=== PATIENT | male | born 1980 | race African-American/Black ===

== ENCOUNTER 2017-12-08 15:15 | Inpatient (IN) | payer SELFPAY ==
[2017-12-08] MEDS ORDERED: NA CHLORIDE 0.9% 1,000 ML ONE (15:52)
[2017-12-08] MEDS ORDERED: ONDANSETRON 4 MG/2 ML VIAL IV PRN (16:13)
[2017-12-08] MEDS ORDERED: TRAMADOL HCL 50 MG TAB PO PRN (16:13)
[2017-12-08] MEDS ORDERED: ACETAMINOPHEN 500 MG TAB PO PRN (16:13)
[2017-12-08] MEDS ORDERED: HYDROCODONE/APAP 7.5/325 MG TAB PO PRN (16:13)
[2017-12-08 16:21] LABS: Absolute Lymphocytes (CBC) 1.2 K/uL (0.7-4.9); Absolute Monocytes 0.5 K/uL (0.1-1.3); Absolute Neutrophil 5.6 K/uL (1.8-8.0); Basophils % 0.3 % (0-1.3); Hematocrit 42.6 % (39.6-49.0); Lymphocytes % 15.8 % (15.3-44.8); MCH 27.3 pg (27.0-35.0); MCV 80.5 fL (80-100); Monocytes % 6.8 % (3.3-12.3); RBC Red Blood Cell Count 5.29 M/uL (4.33-5.43)
[2017-12-08 16:23] LABS: Protime INR 1.28
--- NOTE | 2017-12-08 16:29 | P.HP ---
Certification for Inpatient Patient admitted to: Inpatient With expected LOS: >2 Midnights Patient will require the following post-hospital care: Other (Set up of IV antibiotic therapy as an outpatient) Practitioner: I am a practitioner with admitting privileges, knowledge of patient current condition, hospital course, and medical plan of care. Services: Services provided to patient in accordance with Admission requirements found in Title 42 Section 412.3 of the Code of Federal Regulations Patient History Date of Service: 12/08/17 Primary Care Provider: Dr. Durham Reason for admission: Right 2nd toe swelling History of Present Illness: 37-year-old male presented emergency room with increasing swelling and pain to the right distal 2nd toe. The patient reports over the past week he has been having increasing swelling, pain to the right distal 2nd toe. This has caused him to have an abnormal gait. 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 He wears steel toe boots. Today he was seen by his PCP. His PCP was concerned that he had an infection in the bone. He was sent for x-rays and lab. X-ray results were reviewed by his PCP. He was told to go to the ER as x-rays were abnormal. Patient reported some chills over the past week. He denies any nausea, vomiting , headaches or dizziness. He denies any chest pain, shortness of breath, polyuria or polydipsia. Patient with history of hypertension and hyperlipidemia. In the ER patient evaluated. Increased swelling and exudate noted to the right 2nd toe. X-ray reveals osteomyelitis to the right 2nd distal toe. Patient admitted for IV antibiotic therapy and further evaluation. When I saw the patient ER, he did not appear in any distress He appeared comfortable. Patient denies any alcohol or tobacco use. Patient takes medication for hypertension and hyperlipidemia. No history of diabetes. Allergies No Known Allergies Allergy (Unverified 09/23/12 16:11) Home medications list reviewed: Yes Home Medications: Aspirin Chewable [Aspirin Chewable*] 162 mg PO DAILY #0 tab.chew 09/24/12 Famotidine [Pepcid*] 20 mg PO BID #0 tab 09/24/12 Metoprolol Tartrate [Lopressor*] 25 mg PO BID #60 tab 09/24/12 - Past Medical/Surgical History Diabetic: No -: Hypertension -: Hyperlipidemia -: GERD Past Surgical History: Patient denies surgical history Psychosocial/ Personal History: Patient is single. He has no children. 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 - Family History Family History: Reviewed- Non-Contributory - Social History Smoking Status: Never smoker Alcohol use: No CD- Drugs: No Caffeine use: Yes Place of Residence: Home Review of Systems General: Chills, As per HPI Eyes: Unremarkable ENT: Unremarkable Respiratory: Unremarkable Cardiovascular: Unremarkable Gastrointestinal: Unremarkable Genitourinary: Unremarkable Musculoskeletal: As per HPI Integumentary: As per HPI Neurological: Unremarkable Lymphatics: Unremarkable Physical Examination - Physical Exam General: Alert, In no apparent distress, Oriented x3, Cooperative HEENT: Atraumatic, Normocephalic, PERRLA, Mucous membr. moist/pink Neck: Supple, No Thyromegaly Respiratory: Clear to auscultation bilaterally, Normal air movement Cardiovascular: Normal pulses, Regular rate/rhythm Gastrointestinal: Normal bowel sounds, Soft and benign, Non-distended, No tenderness, No masses, No rebound, No guarding Musculoskeletal: No warmth, Tenderness (Pain to the right 2nd toe.) Integumentary: Tenderness/swelling (Increased swelling noted to the right 2nd toe compared to his other toes. A small ulcer noted to the proximal nail bed area. No significant warmth noted.) Neurological: Normal speech, Normal strength at 5/5 x4 extr, Normal tone, Normal affect Lymphatics: No axilla or inguinal lymphadenopathy Assessment and Plan - Plan Impression: Acute osteomyelitis of the right 2nd distal toe Hypertension Hyperlipidemia GERD Plan: Acute osteomyelitis of the right 2nd distal toe: Patient will be admitted for IV antibiotic therapy. IV vancomycin and Zosyn initiated. Pharmacy to monitor and adjust antibiotic therapy. Will obtain wound culture and blood culture results. Await lab-BMP/CBC/lactic acid. X-ray results identified osteomyelitis of the right 2nd distal toe. Will have surgery consulted to further evaluate. Patient will require IV antibiotic therapy long-term. Will have PICC line placed. Will discuss with surgery about the plan and duration of IV antibiotic therapy. field services director will need to help in this process of long-term IV antibiotic therapy either at home or as an outpatient with the hospital. Patient will be on DVT prophylaxis. Patient may require debridement but await recommendations from surgery. Likely discharge as early as Monday if IV antibiotic therapy can be arranged. Hypertension: Will continue with his medication metoprolol 12.5 mg 1 pill twice daily. Will monitor and adjust appropriately. Hyperlipidemia: Will continue with statin medication. GERD: Will continue with medication. Discharge Plan: Home Plan to discharge in: Greater than 2 days - Advance Directives Does patient have a Living Will: No Does patient have a Durable POA for Healthcare: No - Code Status/Comfort Care Code Status Assessed: Yes (Patient full code.) Time Spent Managing Pts Care (In Minutes): 55
[2017-12-08 16:51] LABS: ALT/SGPT 34 U/L (12-78); AST/SGOT 20 U/L (15-37); Albumin 3.8 g/dL (3.4-5.0); Alkaline Phosphatase 61 U/L (45-117); BUN Blood Urea Nitrogen 17 mg/dL (7-18); Bicarbonate 27 mmol/L (21-32); Bilirubin Direct < 0.1 mg/dL (0-0.2); Bilirubin Total 0.5 mg/dL (0.2-1.0); Creatine Phosphokinase 111 U/L (39-308); Glucose Level 133 mg/dL (74-106); Lipase 137 U/L (73-393); Potassium 4.1 mmol/L (3.5-5.1); Protein, Total 8.2 g/dL (6.4-8.2); Sodium Level 139 mmol/L (136-145)
[2017-12-08] MEDS ORDERED: VANCOMYCIN/NS 1 gm 1 GM/250 ML BAG IV SCH (17:00)
--- NOTE | 2017-12-08 17:02 | ER ---
Nurse's Notes [facility] Name: Wiliam Van Age: 37 yrs Sex: Male : 1980 Arrival Date: 12/08/2017 Time: 15:17 Bed 23 Private MD: Diagnosis: Osteomyelitis-Right Second Toe Presentation: 12/08 15:24 Presenting complaint: Patient states: he did xray for his right foot today and his PCP mg2 advised him to go to ED because of bone infection in the right middle toe. he was prescribed with clindamycin and bactrim today. denies fever. Transition of care: patient was not received from another setting of care. Onset of symptoms was November 2017. Risk Assessment: Do you want to hurt yourself or someone else? Patient reports no desire to harm self or others. Initial Sepsis Screen: Does the patient meet any 2 criteria? No. Patient's initial sepsis screen is negative. Does the patient have a suspected source of infection? Yes: Skin breakdown/wound. Care prior to arrival: None. 15:24 Method Of Arrival: Ambulatory mg2 15:24 Acuity: MANDO 3 mg2 Historical: - Allergies: 15:28 No Known Allergies; mg2 - Home Meds: 15:28 metoprolol tartrate Oral [Active]; provastatin [Active]; Clindamycin Oral [Active]; mg2 Bactrim DS Oral [Active]; - PMHx: 15:28 Hypertension; Hyperlipidemia; mg2 - PSHx: 15:28 None; mg2 - Immunization history:: Flu vaccine is not up to date. - Social history:: Smoking status: Patient/guardian denies using tobacco, Patient/guardian denies using alcohol, street drugs, IV drugs. - Ebola Screening: : No symptoms or risks identified at this time. Screenin:30 Abuse screen: Denies threats or abuse. Denies injuries from another. Nutritional mg2 screening: No deficits noted. Tuberculosis screening: No symptoms or risk factors identified. Fall Risk None identified. Assessment: 15:31 General: Appears in no apparent distress. comfortable, Behavior is calm, cooperative. mg2 Pain: Denies pain. Neuro: Level of Consciousness is awake, alert, obeys commands, Oriented to person, place, time, situation. Cardiovascular: Capillary refill < 3 seconds Patient's skin is warm and dry. Respiratory: Airway is patent Respiratory effort is even, unlabored, Respiratory pattern is regular, symmetrical. GI: No signs and/or symptoms were reported involving the gastrointestinal system. : No signs and/or symptoms were reported regarding the genitourinary system. EENT: No signs and/or symptoms were reported regarding the EENT system. Derm: Skin has lesions on right middle toe Skin is normal, Wound noted right middle toe. Musculoskeletal: Circulation, motion, and sensation intact. Capillary refill < 3 seconds, Swelling present in right foot. 16:48 Reassessment: Patient appears in no apparent distress at this time. Patient and/or mg2 family updated on plan of care and expected duration. Pain level reassessed. Patient is alert, oriented x 3, equal unlabored respirations, skin warm/dry/pink. seen by hospitalist sales representative publications and advised for admission. patient agreed about the plan. Vital Signs: 15:29 BP 154 / 86; Pulse 108; Resp 18; Temp 99.2; Pulse Ox 100% on R/A; Weight 74.39 kg; mg2 Height 5 ft. 5 in. (165.10 cm); Pain 0/10; 16:48 BP 142 / 51; Pulse 110; Resp 18; Pulse Ox 100% on R/A; mg2 17:20 BP 144 / 60; Pulse 102; Resp 18; Temp 98.8(O); Pulse Ox 100% on R/A; mg2 15:29 Body Mass Index 27.29 (74.39 kg, 165.10 cm) mg2 ED Course: 15:17 Patient arrived in ED. tw3 15:18 Brett Light PA is PHCP. cp 15:18 Ricardo Delgadillo MD is Attending Physician. cp 15:24 Jeffrey Ruiz, BELIA is Primary Nurse. mg2 15:26 Triage completed. mg2 15:30 Arm band placed on. mg2 15:33 Patient has correct armband on for positive identification. Bed in low position. Call mg2 light in reach. Side rails up X 1. Pulse ox on. NIBP on. Door closed. Warm blanket given. 15:59 No provider procedures requiring assistance completed. Inserted saline lock: 20 gauge mg2 in right antecubital area, using aseptic technique. Blood collected. 16:25 EKG done, by optical technician. reviewed by Brett BARTON. sm3 17:00 Prezas, Mike, DO is Hospitalizing Provider. cp 17:39 Patient admitted, IV remains in place. mg2 Administered Medications: 15:59 Drug: NS 0.9% 1000 ml Route: IV; Rate: 1 bolus; Site: right antecubital; mg2 17:37 Follow up: Response: No adverse reaction; IV Status: Completed infusion mg2 17:05 Drug: Zosyn 3.375 grams Route: IVPB; Infused Over: 60 mins; Site: right antecubital; mg2 17:05 Follow up: Response: No adverse reaction; IV Status: Infusion continued upon admission mg2 17:37 Not Given (medicine sent together with the patient in the floor. nurse aware. ): mg2 vancoMYCIN 1 grams IVPB once over 2 hrs Point of Care Testing: Blood Glucose: 16:09 Blood Glucose: 116 mg/dL; mg2 Ranges: Outcome: 17:01 Decision to Hospitalize by Provider. cp 17:39 Admitted to Tele accompanied by tech, via wheelchair, room 411, with chart, Report mg2 called to BELIA Quinones 17:39 Condition: stable 17:39 Instructed on the need for admit, Demonstrated understanding of instructions. 17:40 Patient left the ED. mg2 Signatures: Brett Light PA PA dayana Mancilla, Lakeisha tw3 Jeffrey Ruiz RN RN mg2 Latosha Zhang sm3
--- NOTE | 2017-12-08 17:02 | EDPHYS ---
Physician Documentation [facility] Name: Wiliam Van Age: 37 yrs Sex: Male : 1980 Arrival Date: 12/08/2017 Time: 15:17 Bed 23 Private MD: ED Physician Ricardo Delgadillo HPI: 12/08 15:45 This 37 yrs old Black Male presents to ER via Ambulatory with complaints of BONE cp INFECTION. 15:45 The patient presents with osteomyelitis of right second toe. cp 15:45 Patient reports he was called by DR Durham today after having xrays taken of right foot cp that showed osteomyelitis of distal phalanx of right second toe. Patient reports noticing open wound 1 week ago. Took 1 dose of prescribed clindamycin prior to arrival. Historical: - Allergies: 15:28 No Known Allergies; mg2 - Home Meds: 15:28 metoprolol tartrate Oral [Active]; provastatin [Active]; Clindamycin Oral [Active]; mg2 Bactrim DS Oral [Active]; - PMHx: 15:28 Hypertension; Hyperlipidemia; mg2 - PSHx: 15:28 None; mg2 - Immunization history:: Flu vaccine is not up to date. - Social history:: Smoking status: Patient/guardian denies using tobacco, Patient/guardian denies using alcohol, street drugs, IV drugs. - Ebola Screening: : No symptoms or risks identified at this time. ROS: 15:50 Constitutional: Negative for body aches, chills, fever, poor PO intake. cp 15:50 Eyes: Negative for injury, pain, redness, and discharge. cp 15:50 ENT: Negative for drainage from ear(s), ear pain, sore throat, difficulty swallowing, difficulty handling secretions. 15:50 Cardiovascular: Negative for chest pain, edema, palpitations. 15:50 Respiratory: Negative for cough, shortness of breath, wheezing. 15:50 Skin: Positive for cellulitis, open wound distal tip right second toe. 15:50 Neuro: Negative for altered mental status, headache, syncope, weakness. 15:50 All other systems are negative. Exam: 16:00 Constitutional: The patient appears in no acute distress, alert, awake, cp non-diaphoretic, non-toxic, well developed, well nourished. 16:00 Head/Face: Normocephalic, atraumatic. Eyes: Pupils equal round and reactive to light, cp extra-ocular motions intact. Lids and lashes normal. Conjunctiva and sclera are non-icteric and not injected. Cornea within normal limits. Periorbital areas with no swelling, redness, or edema. ENT: Nares patent. No nasal discharge, no septal abnormalities noted. Tympanic membranes are normal and external auditory canals are clear. Oropharynx with no redness, swelling, or masses, exudates, or evidence of obstruction, uvula midline. Mucous membranes moist. Neck: Trachea midline, no thyromegaly or masses palpated, and no cervical lymphadenopathy. Supple, full range of motion without nuchal rigidity, or vertebral point tenderness. No Meningismus. Chest/axilla: Normal chest wall appearance and motion. Nontender with no deformity. No lesions are appreciated. 16:00 Cardiovascular: Rate: tachycardic, Rhythm: regular, Pulses: Pulses are 2+ in right radial artery, right dorsalis pedis artery, left radial artery and left dorsalis pedis artery. Heart sounds: murmur, not appreciated, rub, not appreciated, gallop, not appreciated, Edema: is not appreciated, JVD: is not appreciated. 16:00 Respiratory: the patient does not display signs of respiratory distress, Respirations: normal, no use of accessory muscles, no retractions, no splinting, no tachypnea, labored breathing, is not present, Breath sounds: are clear throughout, no decreased breath sounds, no stridor, no wheezing. 16:00 Abdomen/GI: Inspection: abdomen appears normal, Bowel sounds: active, all quadrants, Palpation: abdomen is soft and non-tender, in all quadrants, rebound tenderness, is not appreciated, voluntary guarding, is not appreciated, involuntary guarding, is not appreciated. 16:00 Skin: open wound distal phalanx right second toe with swelling of digit, erythema, mild drainage. 16:00 Neuro: Orientation: to person, place \T\ time. Mentation: lucid, able to follow commands, Cerebellar function: is grossly normal, Motor: moves all fours, strength is normal, Sensation: no obvious gross deficits. 16:25 ECG was reviewed by the Attending Physician. cp Vital Signs: 15:29 BP 154 / 86; Pulse 108; Resp 18; Temp 99.2; Pulse Ox 100% on R/A; Weight 74.39 kg; mg2 Height 5 ft. 5 in. (165.10 cm); Pain 0/10; 16:48 BP 142 / 51; Pulse 110; Resp 18; Pulse Ox 100% on R/A; mg2 17:20 BP 144 / 60; Pulse 102; Resp 18; Temp 98.8(O); Pulse Ox 100% on R/A; mg2 15:29 Body Mass Index 27.29 (74.39 kg, 165.10 cm) mg2 MDM: 15:18 Patient medically screened. cp 17:00 Data reviewed: vital signs, nurses notes, lab test result(s), EKG, radiologic studies, cp plain films, radiology report. 17:00 Test interpretation: by ED physician or midlevel provider: ECG. Counseling: I had a cp detailed discussion with the patient and/or guardian regarding: the historical points, exam findings, and any diagnostic results supporting the discharge/admit diagnosis, lab results, radiology results, the need for further work-up and treatment in the hospital. 12/08 15:44 Order name: Wound Culture cp 12/08 15:44 Order name: C-Reactive Protein; Complete Time: 16:53 cp 12/08 16:54 Interpretation: Abnormal: C-REACTIVE PROT 15.60. cp 12/08 15:44 Order name: Sed Rate cp 12/08 15:44 Order name: Basic Metabolic Panel; Complete Time: 16:53 cp 12/08 16:53 Interpretation: Normal except: GLUC 133; GFR 82. cp 12/08 15:44 Order name: Blood Culture Adult (2) cp 12/08 15:44 Order name: CBC with Diff cp 12/08 16:34 Interpretation: Normal except: ZAHRA% 76.1. cp 12/08 15:44 Order name: CPK; Complete Time: 16:53 cp 12/08 15:44 Order name: LFT's; Complete Time: 16:53 cp 12/08 15:44 Order name: Lipase; Complete Time: 16:53 cp 12/08 15:44 Order name: Procalcitonin; Complete Time: 16:53 cp 12/08 15:44 Order name: Protime (+inr); Complete Time: 16:33 cp 12/08 16:34 Interpretation: Normal except: PT 15.2. cp 12/08 15:44 Order name: Ptt, Activated; Complete Time: 16:33 cp 12/08 16:34 Interpretation: Reviewed. cp 12/08 16:08 Order name: Lactate mg2 12/08 16:21 Order name: Basic Metabolic Panel EDMS 12/08 16:21 Order name: Basic Metabolic Panel EDMS 12/08 16:21 Order name: Basic Metabolic Panel EDMS 12/08 16:21 Order name: Basic Metabolic Panel EDMS 12/08 16:21 Order name: CBC with Automated Diff EDMS 12/08 16:21 Order name: CBC with Automated Diff EDMS 12/08 16:21 Order name: CBC with Automated Diff EDMS 12/08 16:21 Order name: CBC with Automated Diff EDMS 12/08 16:21 Order name: Lipid Profile EDMS 12/08 16:21 Order name: Lipid Profile EDMS 12/08 16:21 Order name: Magnesium EDMS 12/08 16:21 Order name: Magnesium EDMS 12/08 16:21 Order name: Magnesium EDMS 12/08 16:21 Order name: Magnesium EDMS 12/08 16:21 Order name: Thyroid Stimulating Hormone EDMS 12/08 16:21 Order name: Thyroid Stimulating Hormone EDMS 12/08 16:21 Order name: Wound Culture EDMS 12/08 15:44 Order name: Accucheck; Complete Time: 15:59 cp 12/08 15:44 Order name: Cardiac monitoring; Complete Time: 15:59 cp 12/08 15:44 Order name: EKG - Nurse/Tech; Complete Time: 16:50 cp 12/08 15:44 Order name: IV Saline Lock - Large Bore; Complete Time: 15:59 cp 12/08 15:44 Order name: Labs collected and sent; Complete Time: 15:59 cp 12/08 15:44 Order name: O2 Per Protocol; Complete Time: 15:59 cp 12/08 15:44 Order name: O2 Sat Monitoring; Complete Time: 15:59 cp 12/08 16:21 Order name: CONS Pharmacy Consult EDMS 12/08 16:21 Order name: CONS Physician Consult EDMS 12/08 16:21 Order name: Social Service Consult EDMS 12/08 16:21 Order name: Heart Healthy EDMS 12/08 16:21 Order name: Blood Culture EDMS EC:25 Rate is 109 beats/min. Rhythm is regular. NH interval is normal. QRS interval is cp normal. QT interval is normal. T waves are Inverted in lead III. Interpreted by me. Reviewed by me. Administered Medications: 15:59 Drug: NS 0.9% 1000 ml Route: IV; Rate: 1 bolus; Site: right antecubital; mg2 17:37 Follow up: Response: No adverse reaction; IV Status: Completed infusion mg2 17:05 Drug: Zosyn 3.375 grams Route: IVPB; Infused Over: 60 mins; Site: right antecubital; mg2 17:05 Follow up: Response: No adverse reaction; IV Status: Infusion continued upon admission mg2 17:37 Not Given (medicine sent together with the patient in the floor. nurse aware. ): mg2 vancoMYCIN 1 grams IVPB once over 2 hrs Point of Care Testing: Blood Glucose: 16:09 Blood Glucose: 116 mg/dL; mg2 Ranges: Critical Glucose Levels:Adult <50 mg/dl or >400 mg/dl <40 mg/dl or >180 mg/dl Disposition: 12/09 06:24 Co-signature as Attending Physician, Ricardo Delgadillo MD I agree with the assessment and kdr plan of care. Disposition: 12/08/17 17:01 Hospitalization ordered by Mike Salomon for Inpatient Admission. Preliminary diagnosis is Osteomyelitis - Right Second Toe. - Bed requested for Telemetry/MedSurg (Inpatient). - Status is Inpatient Admission. mg2 - Condition is Fair. - Problem is new. - Symptoms are unchanged. UTI on Admission? No Signatures: Dispatcher [employer] EDMS Ricardo Delgadillo MD MD [facility] Brett Light PA PA cp Botello, Elizabeth eb Gardose, Michele, RN RN mg2 Corrections: (The following items were deleted from the chart) 12/08 17:02 17:01 Hospitalization Ordered by Mike Salomon DO for Inpatient Admission. Preliminary eb diagnosis is Osteomyelitis - Right Second Toe. Bed requested for Telemetry/MedSurg (Inpatient). Status is Inpatient Admission. Condition is Fair. Problem is new. Symptoms are unchanged. UTI on Admission? No. cp 17:40 17:02 12/08/2017 17:01 Hospitalization Ordered by Mike Salomon DO for Inpatient mg2 Admission. Preliminary diagnosis is Osteomyelitis - Right Second Toe. Bed requested for Telemetry/MedSurg (Inpatient). Status is Inpatient Admission. Condition is Fair. Problem is new. Symptoms are unchanged. UTI on Admission? No. eb
[2017-12-08] MEDS ORDERED: PIPER/TAZO/NS 3.375gm 3.375 GM/100 ML BAG ONE (17:09)
[2017-12-08] MEDS: NA CHLORIDE 0.9% 1,000 ML IV SCH (18:15)
[2017-12-08] MEDS: METOPROLOL TAR 25 MG TAB PO SCH (18:24)
[2017-12-08] MEDS: ENOXAPARIN 40 MG/0.4 ML SQ SCH (18:25)
[2017-12-08 19:50] VITALS: BMI 27.3
[2017-12-08] MEDS ORDERED: INFLUENZA VACCINE (for 3y+) 0.5 ML DOSE IMVAC ONE (20:00)
[2017-12-08] MEDS: PIPER/TAZO/NS 3.375gm 3.375 GM/100 ML BAG IVPB SCH (21:00)
[2017-12-08] MEDS: FAMOTIDINE 20 MG TAB PO SCH (21:00)
[2017-12-08] MEDS: ATORVASTATIN 10 MG TAB PO SCH (21:01)
[2017-12-08 21:49] LABS: Urine Appearance CLEAR; Urine Bilirubin NEGATIVE (NEG); Urine Blood NEGATIVE (NEG); Urine Color YELLOW; Urine Glucose NEGATIVE (NEG); Urine Protein NEGATIVE (NEG); Urine Specific Gravity >=1.030 (1.005-1.030)
[2017-12-08 21:50] LABS: Urine Microscopic Reflex NO UMIC
[2017-12-09] MEDS: PIPER/TAZO/NS 3.375gm 3.375 GM/100 ML BAG IVPB SCH ×3 (01:44→16:22)
[2017-12-09] MEDS: NA CHLORIDE 0.9% 1,000 ML IV SCH ×2 (01:45→16:24)
--- NOTE | 2017-12-09 04:17 | EKG ---
Test Date: 2017-12-08 Test Time: 16:16:21 Cripple Cutter: CHERYL MEASUREMENT RESULTS: Intervals: Rate: 109 DC: 126 QRSD: 90 QT: 322 QTc: 433 [employer]: P: 46 DC: 126 QRS: 93 T: 2 INTERPRETIVE STATEMENTS: Sinus tachycardia Rightward axis Minimal voltage criteria for LVH, may be normal variant T wave abnormality, consider inferior ischemia Abnormal ECG Compared to ECG 09/23/2012 11:27:56 Right-axis deviation now present T-wave abnormality still present Possible ischemia still present Electronically Signed On 12-09-17 04:17:08 CDT by Jesse Jones
[2017-12-09] MEDS: METOPROLOL TAR 25 MG TAB PO SCH ×2 (05:00→18:28)
[2017-12-09 06:05] LABS: Absolute Monocytes 0.7 K/uL (0.1-1.3); Absolute Neutrophil 4.2 K/uL (1.8-8.0); Basophils % 0.4 % (0-1.3); Hematocrit 38.4 % (39.6-49.0); Lymphocytes % 16.4 % (15.3-44.8); MCH 26.9 pg (27.0-35.0); MCV 80.9 fL (80-100); MPV 7.5 fL (7.6-11.3); Monocytes % 11.1 % (3.3-12.3); RBC Red Blood Cell Count 4.74 M/uL (4.33-5.43)
[2017-12-09 06:22] LABS: Magnesium 1.9 mg/dL (1.8-2.4); Potassium 4.1 mmol/L (3.5-5.1); Thyroid Stimulating Hormone 0.79 uIU/mL (0.360-3.740)
[2017-12-09] MEDS: ASPIRIN EC 81 MG TAB PO SCH (09:01)
[2017-12-09] MEDS: ENOXAPARIN 40 MG/0.4 ML SQ SCH (09:01)
[2017-12-09] MEDS: FAMOTIDINE 20 MG TAB PO SCH ×2 (09:01→20:25)
[2017-12-09] MEDS: VANCOMYCIN 1.25 GM in NA CHLORIDE 0.9% 250 ML IVPB SCH (09:43)
--- NOTE | 2017-12-09 10:27 | P.PN ---
Subjective Date of Service: 12/09/17 Primary Care Provider: Dr. Durham Chief Complaint: Right 2nd toe swelling Subjective: Doing well Physical Examination - Vital Signs Temperature: 98.2 F Blood Pressure: 144/93 Pulse: 91 Respirations: 20 Pulse Ox (%): 100 - Physical Exam General: Alert, In no apparent distress, Oriented x3, Cooperative HEENT: Atraumatic Neck: Supple Respiratory: Clear to auscultation bilaterally, Normal air movement Cardiovascular: Normal pulses, Regular rate/rhythm Gastrointestinal: Normal bowel sounds, Soft and benign, Non-distended, No masses , No rebound, No guarding Musculoskeletal: No warmth Integumentary: Other (Swelling to the right 2nd toe improved) Neurological: Normal speech, Normal strength at 5/5 x4 extr, Normal tone, Normal affect - Studies Laboratory Data (last 24 hrs) 12/08/17 15:55: PT 15.2 H, INR 1.28, APTT 38.1 H 12/08/17 15:55: WBC 7.3, Hgb 14.5, Hct 42.6, Plt Count 379 12/08/17 15:55: Sodium 139, Potassium 4.1, BUN 17, Creatinine 1.20, Glucose 133 H, Total Bilirubin 0.5, AST 20, ALT 34, Alkaline Phosphatase 61, Lipase 137 Medications List Reviewed: Yes Assessment & Plan Discharge Plan: Home Plan to discharge in: 48 Hours Physician Review Additional Text: Impression: Acute osteomyelitis of the right 2nd distal toe Hypertension Hyperlipidemia GERD Plan: Acute osteomyelitis of the right 2nd distal toe: Patient admitted for IV antibiotic therapy. Will continue with IV vancomycin and Zosyn initiated. Pharmacy to monitor and adjust antibiotic therapy. Wound culture and blood culture results. X-ray results identified osteomyelitis of the right 2nd distal toe. Case discussed with surgery. Patient will have debridement at bedside. Patient requires PICC line. Surgery recommends vancomycin at discharge IV for 6 weeks. Will need to discuss with foster care social worker on Monday to help arrange. Patient has no insurance. Will check with pharmacy to see what dosage he will require. Patient can be [facility] up at [facility] as an outpatient. This will need help in arranging outpatient IV antibiotic therapy and follow up. Hypertension: Will increase metoprolol to 25 mg 1 pill twice daily for better control. Will monitor and adjust appropriately. Hyperlipidemia: Will continue with statin medication. GERD: Will continue with medication. Time Spent Managing Pts Care (In Minutes): 55
--- NOTE | 2017-12-09 13:07 | CON ---
Date of Consultation: 12/08/2017 Reason: Osteomyelitis, infected wound, right second toe. History Of Present Illness: The patient is a 37-year-old gentleman, came to the emergency room refer red by his primary care physician with a right second toe infection. He had x-ray done which showed osteomyelitis prior to his visit to the ER. He denies any fever or chills. He states this has been bothering him for the last week or so. He works and wears steel-toed boots. He had some chills, but no fevers. No sore throat, runny nose, cough, headaches, or dizziness. No chest pain. Minimal yi inage from a small open wound in the dorsum of the right second toe. Review of Systems: Otherwise unremarkable. Past Medical History: He denies diabetes. He does have hypertension and hyperlipidemia. Past Surgical History: Negative. Allergies: NO ALLERGIES. Social History: He does not smoke. Does not drink alcohol. Family History: Noncontributory. Physical Examination: Vital Signs: Stable. He is afebrile he is awake, alert, or oriented x3. Head and Neck: Cranial nerves 2 through 12 grossly within normal limits. No neck masses. No JVD. Throat clear. Neck supple. Chest: Clear. Heart: S1 and S2. Abdomen: Soft. Extremities: Palpable dorsalis pedis and posterior tibial pulses, and right second toe the distal ph alanx is enlarged, swollen. There is an open wound at the nail bed. Upon examining it, there was pu s that was oozing out from near the nail bed, at the bedside. The necrotic skin on the toe was debri ded. There was more pus that was there. Cultures were done. There was opening toward the distal ph alanx, the bony part of the toe and there was some fibrinous exudates there. The remainder of the pr oximal toe and the foot appears without significant evidence of disease. X-rays from yesterday showe d second toe distal phalanx osteomyelitis. Laboratory Data: Shows a sedimentation rate of 20. White count is normal. There was slight left sh ift. INR is 1.28. Chemistry reviewed. Procalcitonin was normal. Lactic acid was normal. Assessment: A 37-year-old gentleman with infected wounds right second toe with osteomyelitis. Recommendation: All options were discussed with the patient including amputation of the distal toe; however, as he is a young patient, he is not a diabetic, I think it warrants just trying 6 weeks of I V antibiotics, local wound care. Hopefully we can salvage this toe. Should the medical management n ot work then patient will require amputation of that toe and also we should await the results of the cultures prior to deciding which antibiotics he needs as an outpatient. MCKAY/CIERA Voice ID: [id number] Report ID: [id number]
[2017-12-09] MEDS: ATORVASTATIN 10 MG TAB PO SCH (20:25)
[2017-12-10] MEDS: PIPER/TAZO/NS 3.375gm 3.375 GM/100 ML BAG IVPB SCH ×3 (00:23→16:16)
[2017-12-10] MEDS: NA CHLORIDE 0.9% 1,000 ML IV SCH (00:24)
[2017-12-10] MEDS: VANCOMYCIN 1.25 GM in NA CHLORIDE 0.9% 250 ML IVPB SCH ×2 (04:00→21:09)
[2017-12-10] MEDS: METOPROLOL TAR 25 MG TAB PO SCH ×2 (05:04→17:10)
[2017-12-10 07:31] LABS: Absolute Monocytes 0.6 K/uL (0.1-1.3); Absolute Neutrophil 4.7 K/uL (1.8-8.0); Basophils % 0.4 % (0-1.3); Eosinophils % 1.8 % (0-4.4); Hematocrit 42.1 % (39.6-49.0); Lymphocytes % 15.3 % (15.3-44.8); MCH 26.9 pg (27.0-35.0); MCV 80.6 fL (80-100); MPV 7.4 fL (7.6-11.3); RBC Red Blood Cell Count 5.23 M/uL (4.33-5.43)
[2017-12-10 07:43] LABS: Magnesium 2.2 mg/dL (1.8-2.4); Potassium 3.7 mmol/L (3.5-5.1)
--- NOTE | 2017-12-10 08:26 | P.PN ---
Subjective Date of Service: 12/10/17 Primary Care Provider: Dr. Durham Chief Complaint: Right 2nd toe swelling Subjective: Doing well Physical Examination - Vital Signs Temperature: 98.5 F Blood Pressure: 142/86 Pulse: 73 Respirations: 20 Pulse Ox (%): 98 - Physical Exam General: Alert, In no apparent distress, Oriented x3, Cooperative HEENT: Atraumatic Neck: Supple Respiratory: Clear to auscultation bilaterally, Normal air movement Cardiovascular: Normal pulses, Regular rate/rhythm Gastrointestinal: Normal bowel sounds, Soft and benign, Non-distended, No tenderness, No masses, No rebound, No guarding Integumentary: Other (Right foot bandaged.) Neurological: Normal speech, Normal strength at 5/5 x4 extr, Normal tone, Normal affect - Studies Microbiology Data (last 24 hrs): 12/08/17 15:55 Wound - Right Toe Gram Stain - Final Medications List Reviewed: Yes Assessment & Plan Discharge Plan: Home Plan to discharge in: 24 Hours Physician Review Additional Text: Impression: Acute osteomyelitis of the right 2nd distal toe, wound culture positive for Staph aureus Hypertension Hyperlipidemia GERD Plan: Acute osteomyelitis of the right 2nd distal toe, wound culture positive for Staph aureus: Will continue with IV antibiotic therapy. Patient currently on vancomycin and Zosyn. Wound culture positive for Staph aureus. Case discussed with surgery yesterday. Patient had bedside debridement. Surgery recommends to continue with IV antibiotic therapy for 6 weeks. Recommendation is to continue with vancomycin only. Will discuss with psych social worker along with pharmacy to help arrange for outpatient IV antibiotic therapy. Patient still requires PICC line. Patient will need follow up at [facility]. If no significant improvement over the next several weeks patient may require amputation. Possible discharge as early as tomorrow if arrangements for IV antibiotic therapy and wound care can be arranged. Hypertension: Medication was increased yesterday. Blood pressure better controlled. Will continue to monitor and adjust appropriately. Hyperlipidemia: Will continue with statin medication. GERD: Will continue with medication. Time Spent Managing Pts Care (In Minutes): 55
[2017-12-10] MEDS: ENOXAPARIN 40 MG/0.4 ML SQ SCH (08:27)
[2017-12-10] MEDS: FAMOTIDINE 20 MG TAB PO SCH ×2 (08:28→21:09)
[2017-12-10] MEDS: ASPIRIN EC 81 MG TAB PO SCH (08:28)
--- NOTE | 2017-12-10 13:45 | PN ---
Date of Progress Note: 12/10/2017 Subjective: The patient is awake, alert, feels better. Objective: Vital Signs: Stable, afebrile. Extremities: Dressing is clean, dry, and intact. Laboratory Data: Cultures reviewed and the patient HAS Staph aureus, sensitive to vancomycin. Assessment: Right second toe osteomyelitis with infected wound. Recommendation: Continue dressing as ordered, antibiotics. The patient can be discharged once [facility] and PICC line is placed for 6 weeks of IV antibiotics. We will follow the patient [facility]. /MODL Voice ID: [id number] Report ID: [id number]
[2017-12-10] MEDS: ATORVASTATIN 10 MG TAB PO SCH (21:10)
[2017-12-11] MEDS: PIPER/TAZO/NS 3.375gm 3.375 GM/100 ML BAG IVPB SCH ×3 (01:05→17:00)
[2017-12-11 05:35] LABS: Absolute Lymphocytes (CBC) 1.4 K/uL (0.7-4.9); Absolute Monocytes 0.8 K/uL (0.1-1.3); Absolute Neutrophil 4.2 K/uL (1.8-8.0); Basophils % 0.4 % (0-1.3); Eosinophils % 1.8 % (0-4.4); Hematocrit 39.6 % (39.6-49.0); Lymphocytes % 21.2 % (15.3-44.8); MCH 27.2 pg (27.0-35.0); MCV 80.9 fL (80-100); MPV 7.2 fL (7.6-11.3); Monocytes % 12.3 % (3.3-12.3)
[2017-12-11 05:57] LABS: Magnesium 2.1 mg/dL (1.8-2.4); Potassium 3.8 mmol/L (3.5-5.1)
[2017-12-11] MEDS: METOPROLOL TAR 25 MG TAB PO SCH ×2 (06:52→18:33)
[2017-12-11] MEDS: ENOXAPARIN 40 MG/0.4 ML SQ SCH (08:17)
[2017-12-11] MEDS: ASPIRIN EC 81 MG TAB PO SCH (08:17)
[2017-12-11] MEDS: FAMOTIDINE 20 MG TAB PO SCH (08:17)
[2017-12-11 10:03] VITALS: O2SAT 98
[2017-12-11] MEDS ORDERED: VANCOMYCIN 2.25 GM in NA CHLORIDE 0.9% 500 ML IVPB SCH (13:30)
--- NOTE | 2017-12-11 13:42 | P.DS ---
Admission Date: 12/08/17 Discharge Date: 12/11/17 Primary Care Provider: Dr. Durham Disposition: ROUTINE DISCHARGE Discharge Condition: GOOD Reason for Admission: Right 2nd toe swelling Consultations: Surgery-Dr. Rosenthal Procedures: X-ray: CLINICAL HISTORY: Soft tissue infection distal second toe COMPARISON: None. FINDINGS: Erosive changes are seen in the cortex of the tuft second distal phalanx. Bone loss changes evident on the lateral projection. Bone loss changes limited to the tip of the distal phalanx. The base and DIP joint are unremarkable. Remainder of the second toe unremarkable. Elsewhere the toes and metatarsals are without acute or significant finding. No midfoot abnormality. Soft tissue swelling is present at the distal second toe with no air or foreign body. IMPRESSION: Osteomyelitis is present second distal phalanx. No air or foreign body in the second toe. Medical problem list: Acute osteomyelitis of the right 2nd distal toe, wound culture positive for Staph aureus Hypertension Hyperlipidemia GERD Brief History of Present Illness: 37-year-old male presented emergency room with increasing swelling and pain to the right distal 2nd toe. The patient reports over the past week he has been having increasing swelling, pain to the right distal 2nd toe. This has caused him to have an abnormal gait. 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 He wears steel toe boots. Today he was seen by his PCP. His PCP was concerned that he had an infection in the bone. He was sent for x-rays and lab. X-ray results were reviewed by his PCP. He was told to go to the ER as x-rays were abnormal. Patient reported some chills over the past week. He denies any nausea, vomiting , headaches or dizziness. He denies any chest pain, shortness of breath, polyuria or polydipsia. Patient with history of hypertension and hyperlipidemia. In the ER patient evaluated. Increased swelling and exudate noted to the right 2nd toe. X-ray reveals osteomyelitis to the right 2nd distal toe. Patient admitted for IV antibiotic therapy and further evaluation. When I saw the patient ER, he did not appear in any distress He appeared comfortable. Patient denies any alcohol or tobacco use. Patient takes medication for hypertension and hyperlipidemia. No history of diabetes. Hospital Course: Patient admitted for swelling, pain and exudate to the right distal 2nd toe. Patient was seen by his PCP and sent to the ER due to osteomyelitis. Patient found to have osteomyelitis as per x-ray. Patient was admitted for IV antibiotic treatment. Patient was evaluated by surgery. Bedside debridement was done. Surgery recommends to continue with IV antibiotic therapy for 6 weeks. Wound culture positive for Staph aureus. PICC line was placed for long- term IV antibiotic therapy. Arrangements for outpatient IV antibiotic therapy of vancomycin for 6 weeks has also been arranged. Patient will follow up with marketing regional consultant-Dr. Alejandra to continue to monitor and adjust IV vancomycin for the next 6 weeks. Patient may follow up with Dr. Alejandra at the [facility] to monitor his care. Recommendation is for the patient follow up with surgery in 2 -4 weeks to monitor his progress as well. If no improvement patient may require amputation. Patient will be given surgical boot to protect his toe at discharge. He will be taught wound care prior to discharge. At discharge he will continue with vancomycin 2.[address] Alejandra will monitor Vancomycin levels and adjust antibiotic therapy. He is to come to the hospital to get his IV antibiotic therapy. This has been arranged by social media editor and the hospital. A limited supply of tramadol 50 mg 1 pill 3 times a day as needed for pain will be provided. Patient has hypertension. Medications adjusted during his stay for better control. At discharge he will continue with metoprolol 25 mg 1 pill twice daily. Recommendation is to maintain blood pressures less than 150/80. Further adjustment can be done by his PCP. Patient has hyperlipidemia. Patient will continue with Pravastatin 20 mg 1 pill daily. Vital Signs/Physical Exam: Temp Pulse Resp BP Pulse Ox 98.1 F 83 16 140/82 100 12/11/17 12:00 12/11/17 12:00 12/11/17 12:00 12/11/17 12:00 12/11/17 12:00 General: Alert, In no apparent distress, Oriented x3, Cooperative HEENT: Atraumatic, Normocephalic, Mucous membr. moist/pink Neck: Supple Respiratory: Clear to auscultation bilaterally, Normal air movement Cardiovascular: Normal pulses, Regular rate/rhythm Gastrointestinal: Normal bowel sounds, Soft and benign, Non-distended, No tenderness, No masses, No rebound, No guarding Musculoskeletal: No erythema, No tenderness, No warmth Integumentary: No cyanosis, Other (Right foot bandaged) Neurological: Normal speech, Normal strength at 5/5 x4 extr, Normal tone, Normal affect Laboratory Data at Discharge: WBC 6.5 K/uL (4.3-10.9) 12/11/17 05:24 Hgb 13.3 g/dL (13.6-17.9) L 12/11/17 05:24 Hct 39.6 % (39.6-49.0) 12/11/17 05:24 Plt Count 323 K/uL (152-406) 12/11/17 05:24 PT 15.2 SECONDS (9.5-12.5) H 12/08/17 15:55 INR 1.28 12/08/17 15:55 APTT 38.1 SECONDS (24.3-36.9) H 12/08/17 15:55 Sodium 142 mmol/L (136-145) 12/11/17 05:24 Potassium 3.8 mmol/L (3.5-5.1) 12/11/17 05:24 BUN 10 mg/dL (7-18) 12/11/17 05:24 Creatinine 1.20 mg/dL (0.55-1.3) 12/11/17 05:24 Glucose 86 mg/dL (74-106) 12/11/17 05:24 Magnesium 2.1 mg/dL (1.8-2.4) 12/11/17 05:24 Total Bilirubin 0.5 mg/dL (0.2-1.0) 12/08/17 15:55 AST 20 U/L (15-37) 12/08/17 15:55 ALT 34 U/L (12-78) 12/08/17 15:55 Alkaline Phosphatase 61 U/L (45-117) 12/08/17 15:55 Triglycerides 77 mg/dL (<150) 12/09/17 05:34 Cholesterol 170 mg/dL (<200) 12/09/17 05:34 HDL Cholesterol 32 mg/dL (40-60) L 12/09/17 05:34 Cholesterol/HDL Ratio 5.31 12/09/17 05:34 Lipase 137 U/L (73-393) 12/08/17 15:55 Home Medications: Pravastatin Sodium 20 mg PO DAILY 12/08/17 Metoprolol Tartrate [Lopressor*] 25 mg PO BID 6AM 6PM #60 tab 12/11/17 traMADol HCL [Ultram*] 50 mg PO TID PRN #15 tab 12/11/17 New Medications: Metoprolol Tartrate [Lopressor*] 25 mg PO BID 6AM 6PM #60 tab traMADol HCL [Ultram*] 50 mg PO TID PRN #15 tab PRN Reason: Pain Mild Patient Discharge Instructions: 1. Patient will need a follow up with his PCP to follow up this hospitalization. 2. Patient admitted for swelling, pain and exudate to the right distal 2nd toe. Patient was seen by his PCP and sent to the ER due to osteomyelitis. Patient found to have osteomyelitis as per x-ray. Patient was admitted for IV antibiotic treatment. Patient was evaluated by surgery. Bedside debridement was done. Surgery recommends to continue with IV antibiotic therapy for 6 weeks. Wound culture positive for Staph aureus. PICC line was placed for long-term IV antibiotic therapy. Arrangements for outpatient IV antibiotic therapy of vancomycin for 6 weeks has also been arranged. Patient will follow up with marketing regional consultant-Dr. Alejandra to continue to monitor and adjust IV vancomycin for the next 6 weeks. Patient may follow up with Dr. Alejandra at [facility] to monitor his care. Recommendation is for the patient follow up with surgery in 2-4 weeks to monitor his progress as well. If no improvement patient may require amputation. Patient will be given surgical boot to protect his toe at discharge. He will be taught wound care prior to discharge. At discharge he will continue with vancomycin 2.[address] Alejandra will monitor Vancomycin levels and adjust antibiotic therapy. He is to come to the hospital to get his IV antibiotic therapy. This has been arranged by social media editor and the hospital. A limited supply of tramadol 50 mg 1 pill 3 times a day as needed for pain will be provided. 3. Patient has hypertension. Medications adjusted during his stay for better control. At discharge he will continue with metoprolol 25 mg 1 pill twice daily. Recommendation is to maintain blood pressures less than 150/80. Further adjustment can be done by his PCP. 4. Patient has hyperlipidemia. Patient will continue with Pravastatin 20 mg 1 pill daily. Diet: AHA Activity: Fall precautions Followup: Zan Alejandra MD [ACTIVE - CAN ADMIT] - Michele Rosenthal MD [ACTIVE - CAN ADMIT] - Time spent managing pt's care (in minutes): 55
--- NOTE | 2017-12-11 14:09 | RAD REPORT ---
EXAM DESCRIPTION: RAD - Chest Single View - 12/11/2017 2:00 pm CLINICAL HISTORY: Device placement PICC line placement COMPARISON: none FINDINGS: A PICC line has been inserted it extends into the the right atrium and inferior vena cava . The lungs appear clear of acute infiltrate. The heart is normal size. IMPRESSION: A PICC line has been inserted it extends into the the right atrium and inferior vena ca va.
--- NOTE | 2017-12-11 14:17 | P.CNS ---
Date of Consult: 12/11/17 Patient is a pleasant 37 year old gentleman being treated for osteomyelitis. He will need 6 weeks of iv antibiotics. he has no previous history. He will need wound care as well. Normally sees Dr. Durham. However he is out of town at this time. he had a bedside debridement in the hospital. 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 Continue IV antibiotic and wound care 2. Family history of diabetes. Currently he has normal blood sugars. Have discussed pathology and prevention of diabetes with the patient and his brother.
--- NOTE | 2017-12-11 15:02 | RAD REPORT ---
EXAM DESCRIPTION: RAD - Chest Single View - 12/11/2017 2:40 pm CLINICAL HISTORY: Device placement PICC line placement COMPARISON: December 11, 2017 FINDINGS: A PICC line has been inserted with its tip in the distal superior vena cava. The lungs appear clear of acute infiltrate. The heart is normal size. The line overlying the right atrium and inferior vena cava on the prior chest x-ray represented overl aliya artifact IMPRESSION: PICC line with its tip in the distal superior vena cava
--- NOTE | 2017-12-11 16:58 | PN ---
Date of Progress Note: 12/11/2017 Subjective: The patient is awake, alert, no complaint. Objective: Vital signs stable, afebrile. Dressing clean, dry, intact. Assessment: Right second toe osteomyelitis with infected wound. Recommendations: Continue dressing order as directed and IV antibiotics. Discharge Planning: Follow up in [facility] in a week. /MODL Voice ID: [id number] Report ID: [id number]
[2017-12-11 17:56] VITALS: BP 139/83; TEMP 98.6
== END 2017-12-11 19:02 | disposition home or self-care (01) | DRG 541 ==
LOC: ER 15:15 → ERHOLD 16:13 → 4TH 17:27
PROVIDERS: ADMIT Family Medicine; ATTEND Family Medicine
PROC: 0HDMXZZ Extraction of Right Foot Skin, External Approach (ICD-10-PCS; principal; 2017-12-08)
PROC: 02HV33Z Insertion of Infusion Device into Superior Vena Cava, Percutaneous Approach (ICD-10-PCS; 2017-12-11)
DX: M86.171 Other acute osteomyelitis, right ankle and foot (principal); B95.61 Methicillin susceptible Staphylococcus aureus infection as the cause of diseases classified elsewhere; I10 Essential (primary) hypertension; E78.5 Hyperlipidemia, unspecified; K21.9 Gastro-esophageal reflux disease without esophagitis
CPT/HCPCS: 36415; 71045; 80048; 80061; 80076; 80202; 81003; 82550; 82962; 83605; 83690; 83735; 84145; 84443; 85025; 85610; 85652; 85730; 86140; 87040; 87070; 87075; 87077; 87186; 87205; 93005; 96361; 96374; 99285; J1650; J2543; J3370; J7030